=== PATIENT | male | born 1980 | race Caucasian/White ===

== ENCOUNTER 2020-09-25 14:15 | Inpatient (IN) | payer OTHER ==
[~2020-09-25] VITALS: Ht 177.8 cm; Wt 133.4 kg
[2020-09-25 14:35] LABS: BASOPHILS 0.4 % (0-2); EOSINOPHILS 0.7 % (0-7); HEMATOCRIT 46.1 % (42.0-54.0); HEMOGLOBIN 15.7 g/dL (13.5-17.5); IMMATURE GRANULOCYTES 0.7 % (0-5); LYMPHOCYTE ABS# 0.84 10x3/uL (1.32-3.57); MCH 28.6 pg (26.0-34.0); MCHC 34.1 g/dL (31.0-37.0); MONOCYTES 9.1 % (2-11); NEUTROPHIL ABS# 5.99 10x3/uL (1.78-5.38); NEUTROPHILS 78.1 % (40-80); PLATELET COUNT 259 10x3/uL (130-400); RBC 5.49 10x6/uL (4.20-6.10); RDW 13.4 % (11.5-14.5); WBC 7.7 10x3/uL (4.8-10.8)
[2020-09-25 14:50] LABS: CALC OSMOLALITY 276 mosm/kg (275-300); CALCIUM 9.3 mg/dL (8.5-10.1); CARBON DIOXIDE 22.8 mmol/L (21.0-32.0); CHLORIDE - SERUM 101 mmol/L (98-107); CREATININE - SERUM 1.4 mg/dL (0.6-1.3); GLUCOSE 155 mg/dL (74-106); INR 1.65 (0.85-1.17); POTASSIUM - SERUM 4.1 mmol/L (3.5-5.1); PROTIME 18.1 SECONDS (11.6-15.0); SODIUM 137 mmol/L (136-145); UREA NITROGEN 13 mg/dL (7-18); eGFR NON AFRICAN AMERICAN 59 mL/min (90-120)
[2020-09-25 14:51] LABS: APTT 86.7 SECONDS (22.8-39.4)
[2020-09-25 15:06] LABS: ALBUMIN 3.5 g/dL (3.4-5.0); ALKALINE PHOSPHATASE 78 U/L (30-120); ALT (SGPT) 38 U/L (10-68); BILIRUBIN - TOTAL 0.58 mg/dL (0.2-1.3); CKMB 0.6 U/L (0.0-3.6); CREATINE KINASE 97 UL (21-232); MAGNESIUM - SERUM 2.1 mg/dL (1.8-2.4)
[2020-09-25 15:10] LABS: TROPONIN-I < 0.017 ng/mL (0.000-0.060)
[2020-09-25 17:36] LABS: BILIRUBIN NEGATIVE (NEGATIVE); KETONE NEGATIVE (NEGATIVE); NITRITE NEGATIVE (NEGATIVE); UROBILINOGEN NORMAL mg/dL (< 2)
[2020-09-25 17:37] LABS: WHITE CELLS - URINE OCC HPF (0-1)
[2020-09-25 18:05] VITALS: BP 130/86
--- NOTE | 2020-09-25 18:20 | NUR ---
NS STOPPED AT 1820
[2020-09-25] MEDS ORDERED: ZYRTEC10 MG PO (20:29)
[2020-09-25 21:17] VITALS: BP 149/91
[2020-09-26 01:30] VITALS: BP 130/93; Ht 177.8 cm; Wt 133.4 kg
[2020-09-26 05:31] VITALS: BP 118/81
--- NOTE | 2020-09-26 06:15 | NUR ---
NASAL SWAB DONE FOR COVID & TAKEN TO LAB/LABELED. PT DIDN'T GET ANY SLEEP LAST NOC. HAD DIFFICULT TIME GETTING HIS IV RESTARTED, REQUIRED MULTIPLE ATTEMPTS BY SEVERAL STAFF MEMBERS. IVF INFUSING TO RIGHT FOREARM WITHOUT DIFFICULTY. PLEASANT & COOPERATIVE. NO DISTRESS NOTED. REMAINS ON ROOM AIR.
[2020-09-26 06:21] LABS: ALBUMIN 3.4 g/dL (3.4-5.0); ANION GAP 17.3 mmol/L (8-16); BILIRUBIN - TOTAL 0.45 mg/dL (0.2-1.3); CALCIUM 9.5 mg/dL (8.5-10.1); CREATININE - SERUM 1.2 mg/dL (0.6-1.3); MAGNESIUM - SERUM 2.3 mg/dL (1.8-2.4); PROTEIN - SERUM 7.4 g/dL (6.4-8.2)
[2020-09-26 06:22] LABS: BASOPHILS 0.2 % (0-2); EOSINOPHILS 0 % (0-7); HEMATOCRIT 45.4 % (42.0-54.0); HEMOGLOBIN 15.4 g/dL (13.5-17.5); IMMATURE GRANULOCYTES 0.2 % (0-5); LYMPHOCYTE ABS# 1.75 10x3/uL (1.32-3.57); LYMPHOCYTES 30.1 % (15-50); MCH 28.6 pg (26.0-34.0); MCHC 33.9 g/dL (31.0-37.0); MCV 84.2 fL (80.0-100.0); MEAN PLATELET VOLUME 11.6 fL (7.4-10.4); MONOCYTES 9.8 % (2-11); NEUTROPHIL ABS# 3.48 10x3/uL (1.78-5.38); NEUTROPHILS 59.7 % (40-80); PLATELET COUNT 287 10x3/uL (130-400); RBC 5.39 10x6/uL (4.20-6.10); RDW 13.6 % (11.5-14.5); WBC 5.8 10x3/uL (4.8-10.8)
[2020-09-26 06:23] LABS: POTASSIUM - SERUM 5.3 mmol/L (3.5-5.1)
[2020-09-26 08:32] VITALS: BP 136/89
--- NOTE | 2020-09-26 08:49 | NUR ---
PATIENT AAOX4, RESP EVEN AND NON LABORED, NO S/S OF DISTRESS, MEDICATIONS ADMINISTERED WITH NO COMPLICATIONS, NO FURTHER NEEDS AT THIS TIME, CLIR, BLP
--- NOTE | 2020-09-26 14:51 | NUR ---
I have reviewed this patient and I concur with the Shift Assessment completed by the Licensed Practical Nurse today this shift.
[2020-09-26 17:22] VITALS: BP 112/59
[2020-09-27] VITALS (9 sets, daily range): BP systolic 107–125; BP diastolic 59–84
[2020-09-27 06:33] LABS: BASOPHILS 0.6 % (0-2); EOSINOPHILS 1.6 % (0-7); HEMATOCRIT 41.9 % (42.0-54.0); HEMOGLOBIN 13.9 g/dL (13.5-17.5); IMMATURE GRANULOCYTES 0.4 % (0-5); LYMPHOCYTE ABS# 2.21 10x3/uL (1.32-3.57); LYMPHOCYTES 43.3 % (15-50); MCHC 33.2 g/dL (31.0-37.0); MCV 84.5 fL (80.0-100.0); MEAN PLATELET VOLUME 11.5 fL (7.4-10.4); MONOCYTES 12.5 % (2-11); NEUTROPHIL ABS# 2.12 10x3/uL (1.78-5.38); NEUTROPHILS 41.6 % (40-80); RBC 4.96 10x6/uL (4.20-6.10); RDW 13.7 % (11.5-14.5); WBC 5.1 10x3/uL (4.8-10.8)
[2020-09-27 06:47] LABS: PLATELET COUNT 225 10x3/uL (130-400)
--- NOTE | 2020-09-27 07:00 | NUR ---
PT LYING IN BED. RESP EVEN AND UNLABORED. AAOX4. PT DENIES NEEDS AT THIS TIME. CLIR. BED IN LOWEST POSITION. SIDE RAILS X2
[2020-09-27 07:10] LABS: ANION GAP 10.4 mmol/L (8-16); CALCIUM 8.6 mg/dL (8.5-10.1); CARBON DIOXIDE 25.7 mmol/L (21.0-32.0); CREATININE - SERUM 1.2 mg/dL (0.6-1.3); MAGNESIUM - SERUM 1.9 mg/dL (1.8-2.4); PHOSPHOROUS 4.1 mg/dL (2.5-4.9); POTASSIUM - SERUM 4.1 mmol/L (3.5-5.1)
--- NOTE | 2020-09-27 14:11 | NUR ---
I have reviewed this patient and I concur with the Shift Assessment completed by the Licensed Practical Nurse today this shift.
[2020-09-28 01:56] VITALS: BP 108/66
[2020-09-28 06:43] VITALS: BP 108/64
[2020-09-28 09:00] VITALS: BP 114/65
[2020-09-28 09:24] LABS: BASOPHILS 0.7 % (0-2); EOSINOPHILS 2.3 % (0-7); HEMATOCRIT 41.8 % (42.0-54.0); HEMOGLOBIN 14.1 g/dL (13.5-17.5); IMMATURE GRANULOCYTES 0.5 % (0-5); MCH 28.4 pg (26.0-34.0); MCHC 33.7 g/dL (31.0-37.0); MCV 84.1 fL (80.0-100.0); MEAN PLATELET VOLUME 11.3 fL (7.4-10.4); MONOCYTES 9.3 % (2-11); NEUTROPHIL ABS# 2.85 10x3/uL (1.78-5.38); NEUTROPHILS 50.2 % (40-80); PLATELET COUNT 213 10x3/uL (130-400); RBC 4.97 10x6/uL (4.20-6.10); RDW 13.7 % (11.5-14.5); WBC 5.7 10x3/uL (4.8-10.8)
[2020-09-28 09:31] LABS: CALC OSMOLALITY 277 mosm/kg (275-300); CALCIUM 8.8 mg/dL (8.5-10.1); CARBON DIOXIDE 24.8 mmol/L (21.0-32.0); CHLORIDE - SERUM 107 mmol/L (98-107); CREATININE - SERUM 1.1 mg/dL (0.6-1.3); GLUCOSE 89 mg/dL (74-106); MAGNESIUM - SERUM 1.9 mg/dL (1.8-2.4); POTASSIUM - SERUM 4.1 mmol/L (3.5-5.1); SODIUM 140 mmol/L (136-145); UREA NITROGEN 13 mg/dL (7-18); eGFR NON AFRICAN AMERICAN 78 mL/min (90-120)
--- NOTE | 2020-09-28 09:38 | NUR ---
PATIENT AAOX4, RESP EVEN AND NON LABORED, NO S/S OF DISTRESS, MEDICATIONS ADMINISTERED, DR PUENTE WANTS TO CHECK MORNING LABS AND THEN WE CAN DISCHARGE IF EVERYTHING IS NORMAL, NO FURTHER NEEDS AT THIS TIME, SUDHAKAR CONNELLY
[2020-09-28] MEDS ORDERED: PEPCID PO (10:45)
[2020-09-28] MEDS ORDERED: VITAMIN C PO (10:45)
[2020-09-28] MEDS ORDERED: MUCINEX600 MG PO (10:45)
[2020-09-28] MEDS ORDERED: MELATONIN 3 MG1 TAB PO (10:45)
[2020-09-28] MEDS ORDERED: VITAMIN B-1100 M1 PO (10:45)
[2020-09-28] MEDS ORDERED: VITAMIN D325 MC1 PO (10:45)
[2020-09-28] MEDS ORDERED: VENTOLIN HFA [SP8 GM IH (10:45)
[2020-09-28] MEDS ORDERED: TESSALON PERLE100 MG PO (10:45)
[2020-09-28] MEDS ORDERED: ZINC-220220 MG PO (10:45)
--- NOTE | 2020-09-28 11:30 | MORECARE ---
CASE MANAGEMENT DISCHARGE SUMMARY PATIENT: NELSY RODRÍGUEZ UNIT: [id number] ADM DATE: 09/25/20 AGE: 40 : 76 SEX: M ROOM/BED: D.2132 AUTHOR: LILLY,DOC PHYSICIAN: REFERRING PHYSICIAN: MUNIR PUENTE MD DATE OF SERVICE: 09/28/20 Case Management Discharge Planning Summary COMMENTS ENTERED DATE: 09/28/20 11:25 CT COMMENT TYPE: Discharge Planning REVIEWER: Ronald Keating CM met with patient to complete DC plan and to evaluate needs. Patient lives independently with his spouse, Chelly Rodríguez, . Patient stated that their home is safe and has electricity and running water. Patient stated that he has no problems paying for medications and he fills his medications at [facility]. Patient stated that his primary care physician is Dr. Kim. At discharge, the patient plans to home and feels this is a safe discharge. CM discussed availability of home health, rehab services, and medical equipment. Patient declined HHS, SNF, IPR, and DME. Patient voiced no other needs at this time and is satisfied with DC plan. Transportation provider at discharge will be with his spouse, Chelly. CM will continue to follow and will assist as needed with dc plans/needs. DCP REVIEW SUMMARY ANTICIPATED D/C DATE: 09/28/2020 EXPECTED LOS : 3 CASE STATUS: DCP Initiated INITIAL REVIEW: 09/25/2020 INITIAL REVIEWER: Ronald Keating FINAL DISCHARGE DISPOSITION: : FINAL REVIEWER: FINAL REVIEW DATE: DCP Focus Questions & Answers DCP Evaluation QUESTION: ANSWER Family / Caregiver's ability to cope with chronic illness: : a. Adequate (ability to meet patient's medical needs, ensures patient attends medical appts.) Patient gives permission to discuss discharge plans with: (name, relationship and number) : spouse, Chelly Rodríguez, Patient's ability to cope with chronic illness : d. No chronic illness Patient's current cognitive status: : *Oriented to person, place, situation, time and present Patient and/or caregiver agree upon recommended discharge plan? : Yes Physical Status: : Independent with ADL's Family / Caregiver's ability to cope with chronic illness: : a. Adequate (ability to meet patient's medical needs, ensures patient attends medical appts.) Functional screen assessment: : Basic needs can adequately be met by self Does the patient have the ability to pay for or attain post discharge needs / services? : Yes Living Arrangements: : Home with Spouse/Significant Other Is there a likelihood that the patient will require additional services to return to the preadmission environment? : No Equipment needed for post hospitalization: : None Baseline cognitive status: : *Oriented to person, place, situation, time and present Patient with capacity for self-care or can be cared for in same environment as prior to hospitalization? : Yes Physical environment modification needed / anticipated for discharge: : No Medication Management: : Patient states can afford medications Medication Management: : Patient states can read and understand medication labels Pharmacy name(s): : [facility] Does Patient have transportation to get home and to follow-up medical appointments when discharged from the hospital? : Yes Would patient like to participate in any Care Coordination programs (if applicable): : Not applicable Does the patient have electricity at home? : Yes Does the patient have running water in their house? : Yes Equipment in use: : None Mental health screen: : No mental health history DCP Re-evaluation QUESTION: ANSWER Would patient like to participate in any Care Coordination programs (if applicable): : Not applicable PATIENT: NELSY RODRÍGUEZ ENCOUNTER: [id number] MEDICAL RECORD#: [id number] ADMISSION DATE: 09/25/2020 DISCHARGE DATE: ATTENDING MD: MUNIR VELASQUEZ : AGE: 39 MARITAL STATUS: M DC PLAN ID: [id number] FACILITY: [facility] PRINTED ON: 09/28/20 11:30 CT All edits/amendments must be made on the electronic document DICTATION DATE: 09/28/20 113 SOAKER [employer]A WORKER: BRYANNA 09/28/20 113 RPT#: [id number] DC DATE: STATUS: ADM IN [facility] [address] [place] [address] END OF REPORT
--- NOTE | 2020-09-28 12:04 | NUR ---
PATIENT DISCHARGED, IV REMOVED, NO FURTHER NEEDS AT THIS TIME, PATIENT WALKED TO ER AND LEFT WITH HIS
--- NOTE | 2020-09-29 15:26 | MORECARE ---
CASE MANAGEMENT DISCHARGE SUMMARY PATIENT: NELSY RODRÍGUEZ UNIT: [id number] ADM DATE: 09/25/20 AGE: 40 : 76 SEX: M ROOM/BED: D.2132 AUTHOR: LILLY,DOC PHYSICIAN: REFERRING PHYSICIAN: MUNIR PUENTE MD DATE OF SERVICE: 09/29/20 Case Management Discharge Planning Summary COMMENTS ENTERED DATE: 09/28/20 11:25 CT COMMENT TYPE: Discharge Planning REVIEWER: Ronald Keating CM met with patient to complete DC plan and to evaluate needs. Patient lives independently with his spouse, Chelly Rodríguez, . Patient stated that their home is safe and has electricity and running water. Patient stated that he has no problems paying for medications and he fills his medications at [facility]. Patient stated that his primary care physician is Dr. Kim. At discharge, the patient plans to home and feels this is a safe discharge. CM discussed availability of home health, rehab services, and medical equipment. Patient declined HHS, SNF, IPR, and DME. Patient voiced no other needs at this time and is satisfied with DC plan. Transportation provider at discharge will be with his spouse, Chelly. CM will continue to follow and will assist as needed with dc plans/needs. DCP REVIEW SUMMARY ANTICIPATED D/C DATE: 09/28/2020 EXPECTED LOS : 3 CASE STATUS: DCP Initiated INITIAL REVIEW: 09/25/2020 INITIAL REVIEWER: Ronald Keating FINAL DISCHARGE DISPOSITION: : FINAL REVIEWER: FINAL REVIEW DATE: DCP Focus Questions & Answers DCP Evaluation QUESTION: ANSWER Patient gives permission to discuss discharge plans with: (name, relationship and number) : spouse, Chelly Rodríguez, Patient's ability to cope with chronic illness : d. No chronic illness Patient's current cognitive status: : *Oriented to person, place, situation, time and present Family / Caregiver's ability to cope with chronic illness: : a. Adequate (ability to meet patient's medical needs, ensures patient attends medical appts.) Patient and/or caregiver agree upon recommended discharge plan? : Yes Physical Status: : Independent with ADL's Family / Caregiver's ability to cope with chronic illness: : a. Adequate (ability to meet patient's medical needs, ensures patient attends medical appts.) Functional screen assessment: : Basic needs can adequately be met by self Does the patient have the ability to pay for or attain post discharge needs / services? : Yes Living Arrangements: : Home with Spouse/Significant Other Is there a likelihood that the patient will require additional services to return to the preadmission environment? : No Equipment needed for post hospitalization: : None Baseline cognitive status: : *Oriented to person, place, situation, time and present Patient with capacity for self-care or can be cared for in same environment as prior to hospitalization? : Yes Physical environment modification needed / anticipated for discharge: : No Medication Management: : Patient states can afford medications Medication Management: : Patient states can read and understand medication labels Pharmacy name(s): : [facility] Does Patient have transportation to get home and to follow-up medical appointments when discharged from the hospital? : Yes Would patient like to participate in any Care Coordination programs (if applicable): : Not applicable Does the patient have electricity at home? : Yes Does the patient have running water in their house? : Yes Equipment in use: : None Mental health screen: : No mental health history DCP Re-evaluation QUESTION: ANSWER Would patient like to participate in any Care Coordination programs (if applicable): : Not applicable PATIENT: NELSY RODRÍGUEZ ENCOUNTER: [id number] MEDICAL RECORD#: [id number] ADMISSION DATE: 09/25/2020 DISCHARGE DATE: 09/28/2020 ATTENDING MD: MUNIR VELASQUEZ : AGE: 40 MARITAL STATUS: M DC PLAN ID: [id number] FACILITY: [facility] PRINTED ON: 09/29/20 15:25 CT All edits/amendments must be made on the electronic document DICTATION DATE: 09/29/20 1525 CURTAIN FRAMER: BRYANNA 09/29/20 1525 RPT#: [id number] DC DATE:09/28/20 STATUS: DIS IN [facility] [address] [place] [address] END OF REPORT
--- NOTE | 2020-09-29 16:25 | EC ---
PATIENT:NELSY DEMARCO DATE OF SERVICE: 09/25/20 SEX: M MEDICAL RECORD: [id number] DATE OF : 76 LOCATION:D.M2 D.213 AGE OF PATIENT: 40 ADMISSION DATE: 09/25/20 REFERRING PHYSICIAN: INTERPRETING PHYSICIAN: RADHA CAMPOS MD ECHOCARDIOGRAM REPORT ECHO CHARGES 4 ECHO COMPLETE Date: 09/27/20 CLINICAL DIAGNOSIS: SYNCOPE ECHOCARDIOGRAPHIC MEASUREMENTS (adult normal given) AC root (d.<3.7cm) 4.0 cm LV Septum d (<1.2 cm> 1.1 cm Valve Excursion 2.3 cm LV Septum (systole) 1.4 cm Left Atria (s.<4.0cm> 4.0 cm LVPW d(<1.2cm) 1.2 cm RV (d.<2.3cm) 3.7 cm LVPW (sytole) 1.3 cm LV diastole(<5.6CM) 5.3 cm MV E-F(>70mm/sec) cm LV systole 3.6 cm LVOT Diameter 2.2 cm MV exc.(>10mm) cm Est.ejection fraction (50-75%) 55 % DOPPLER: LVIT cm/sec A 55 cm/sec E 71 cm/sec LA cm/sec RVSP 26 mmHg LVOT 93 cm/sec AOP1/2T m/s Asc. Ao 131 cm/sec RVOT 82 cm/sec RA cm/sec PA 94 cm/sec AV Gradient Peak 6 mmHg AV Mean 3 mmHg AV Area 2.5 cm MV Gradient Peak 3 mmHg MV Mean 1 mmHg MV Area cm COMMENTS: Assorter: [place] Surveyor: 5 Dr. Campos TAPE# Pericardial Effusion N DATE OF SERVICE: CLINICAL INDICATION: Syncope. INTERPRETATION: Technically difficult study. FINDINGS: Overall, normal left ventricular chamber size and contractile function, ejection fraction 55%. Left atrial chamber appears normal. Right atrium and right ventricular chamber size and function appears normal. Aortic valve not well visualized. No aortic regurgitation noted. Mitral valve appears ECHOCARDIOGRAM REPORT [id number] NELSY DEMARCO normal. No mitral regurgitation. Tricuspid valve appears normal. No tricuspid regurgitation. Pulmonic valve is not well visualized. No pulmonary insufficiency. No pericardial effusion visualized. IMPRESSION: Technically difficult and limited study. Overall, normal left ventricular chamber size and contractile function with ejection fraction of 55%. TRANSINT:[id number] Voice Confirmation ID: [id number] DOCUMENT ID: [id number] RADHA CAMPOS MD at 1625 CC: [id number] DICTATION DATE: 09/28/20 1228 ROUGE MIXER: 09/28/20 1327 DIS IN 09/28/20 [place] [id number] [place] [id number]
== END 2020-09-28 12:05 | disposition home or self-care (01) | DRG 947 ==
LOC: D.ER 14:15 → D.M2 17:28
PROVIDERS: Family Medicine; ADMIT Emergency Medicine; ATTEND Emergency Medicine
DX: R53.1 Weakness (principal); J18.9 Pneumonia, unspecified organism; N17.9 Acute kidney failure, unspecified; Z68.41 Body mass index [BMI] 40.0-44.9, adult; T50.B95A Adverse effect of other viral vaccines, initial encounter; Z20.822 Contact with and (suspected) exposure to COVID-19; R55 Syncope and collapse; E78.5 Hyperlipidemia, unspecified; E66.9 Obesity, unspecified; K76.0 Fatty (change of) liver, not elsewhere classified; M19.90 Unspecified osteoarthritis, unspecified site; Z86.16 Personal history of COVID-19; E87.5 Hyperkalemia